=== PATIENT | male | born 1985 | race Two or more races ===

== ENCOUNTER → 2020-12-11 15:38 | Outpatient (CLI) | payer OTHER | END | disposition home or self-care (01) | LOC: PPH VACUNA 15:38 | DX: Z23 Encounter for immunization (principal) ==

== ENCOUNTER → 2022-11-25 | Emergency (ER) | payer OTHER ==
[~2022-11-25] VITALS: Ht 175.3 cm; Wt 101.6 kg
[~2022-11-25] MED LIST: INTESTINEX680 M1 PO; NEXIUM2.5 MG PO; PEPCID AC20 MG PO
== END | disposition home or self-care (01) ==
LOC: ER 14:15
DX: R10.9 Unspecified abdominal pain (principal); R11.0 Nausea; A08.8 Other specified intestinal infections; R10.13 Epigastric pain